=== PATIENT | female | born 1995 | race Caucasian/White ===

== ENCOUNTER 2018-02-20 15:24 | Inpatient (IN) | payer OTHER ==
[~2018-02-20] VITALS: Ht 157.5 cm; Wt 80.0 kg
[2018-02-26] MEDS ORDERED: ZOLOFT100 MG (06:26)
[2018-02-26] MEDS ORDERED: LAMICTAL XR200 MG (06:28)
[2018-02-26] MEDS ORDERED: VITAFOL-OB+DHA1 EACH PO (06:29)
--- NOTE | 2018-02-26 08:37 | NUR ---
02/26/18 0837 Kayla Mujica 0828 PATIENT ARRIVES TO [facility] VIA BED. PATIENT AWAKE, ALERT AND ORIENTED X3. RESP EVEN AND UNLABORED. DENIES PAIN OR NAUSEA. 0837 PATIENT BREAST FEEDING TO RIGHT SIDE.
--- NOTE | 2018-02-28 10:18 | PR ---
[facility] [address] [facility] [place] [address] Signed PP Progress Notes Datetime Report Generated by CPN: 02/28/2018 10:18 SUBJECTIVE: [id number] Pain: Within normal limits Nausea/Vomiting: Denies Vital Signs: [id number] Vital Signs: Reviewed; Within Normal Limits Notable Details: PP Hgb/HCt = 11.3/32.6 EXAM: [id number] Abdomen/Uterus: Normal Lochia: Normal Extremities: Normal Incision: Normal IMPRESSION/PLAN/PROCEDURES: [id number] Impression: Normal progression Plan: Discharge Procedures: None Progress Notes: Doing well, without complaoint, wants to go home Signing Physician: Carol Torrez MD Copies: ~ *Electronically Signed* 02/28/18 1018 CAROL TORREZ MD PATIENT NAME: CHRISTIANO FLORES PROGRESS NOTE DATE OF : 94 PHYSICIAN: CAROL TORREZ MD RPT #: [id number] REPORT IS CONFIDENTIAL AND NOT TO BE RELEASED WITHOUT AUTHORIZATION
--- NOTE | 2018-02-28 10:22 | OR ---
[place] [address] [place], [place] [address] Signed DATE OF OPERATION: 02/26/2018 SURGEON: Giuliano Bianchi MD Patient of Dr. Bianchi. PREOPERATIVE DIAGNOSES: Term , previous section. POSTOPERATIVE DIAGNOSES: Term , previous section. PROCEDURE: Repeat low transverse segment section. Delivery of live female . BICYCLE REPAIR TECHNICIAN: Chadd Mosley DO ANESTHESIA: Spinal. ESTIMATED BLOOD LOSS: 500 mL. COMPLICATIONS: None. DRAINS: Scruggs to bladder. FINDINGS: Live female , weight 5 pounds 12 ounces. 's nine and nine. Normal uterus, with slightly elevated bladder more on the right side than the left. Normal tubes and ovaries bilateral. DESCRIPTION OF PROCEDURE: The patient was brought to the operating room, placed in supine position. After adequate spinal anesthesia was obtained, she was placed in dorsal lithotomy position, prepped and draped in usual sterile fashion. Scruggs catheter was placed in the bladder. A Pfannenstiel skin incision was made through the previous surgical scar. Subcutaneous Electronically Signed By: GIULIANO BIANCHI MD 02/28/18 1022 PATIENT NAME: CHRISTIANO FLORES OPERATIVE REPORT DATE OF : [birth year] REPORT #: [id number] PHYSICIAN: GIULIANO BIANCHI MD PCP: UNASSIGNED DOCTOR REPORT IS CONFIDENTIAL AND NOT TO BE RELEASED WITHOUT AUTHORIZATION [place] [address] [place], [place] [address] Signed tissue was then dissected with the scalpel and Bovie. The fascia was nicked with the scalpel and extended in transverse fashion using curved scissors. The underlying abdominal musculature was bluntly and sharply from the fascia above and below the incision. There was some scar tissue adhering the abdominal muscle to the underside of the fascia. This was taken down and the abdominal musculature opened along the midline. The peritoneum was bluntly entered with finger dissection, extended in vertical fashion using Metzenbaum scissors. The Jayesh self-retaining retractor was inserted into the incision and tightened in place. The above findings were noted. The lower uterine segment was examined and a small uterine incision made with a scalpel in the midline just above the elevated bladder. Finger dissection was used to open the incision and very slight meconium stained fluid came from the incision. The infant was noted to be in vertex RANULFO presentation. The head was easily delivered from the incision. There was a loose nuchal cord, which was removed and then the rest of the easily delivered from the incision. The mouth and nose were suctioned with bulb syringe while the cord was doubly clamped and cut. The infant was passed off the table in good condition to the awaiting nurse. The placenta was then manually removed and uterine cavity explored a lap pad to remove any retained membranes. An angle stitch of 0 Monocryl was placed at one end of the incision in a running locking stitch of 0 Monocryl starting at the other end used to close the incision. A 2nd running stitch of 0 Monocryl was used to imbricate the 1st layer. Good hemostasis was noted except for one small area near the right angle. This was controlled with a qslzst-vz-bjjjr stitch of 0 Monocryl. Good hemostasis was then obtained. The entire pelvis was irrigated, suctioned, examined, any superficial bleeding spots were cauterized with the Bovie. The Jayesh retractor was then removed and sheet of ACell placed over the lower uterine segment to help with healing. The anterior wall peritoneum was then closed using running stitch of 2-0 Vicryl suture. The abdominal musculature was reapproximated using interrupted stitches of 0 Vicryl suture. The abdominal wall incision was irrigated, suctioned, examined, any superficial bleeding spots cauterized with the Bovie. Because the area was quite raw and some oozing noted, but no obvious areas of bleeding the abdominal musculature was sprinkled with Lara to help with hemostasis. When good hemostasis was noted, powdered ACell was also sprinkled on the abdominal musculature to help with healing and then the fascia closed using two running stitch of 0 Vicryl suture meeting in the midline. Subcutaneous tissue was irrigated, suctioned, examined, any bleeding spots were cauterized with the Bovie. The subcutaneous tissue sprinkled with the remaining powdered ACell and closed using interrupted stitches of 3-0 Vicryl suture. Skin was reapproximated using skin clips. The patient tolerated the procedure well, went to recovery room in good condition. The sponge, needle, instrument count correct at the end of procedure. Electronically Signed By: GIULIANO BIANCHI MD 02/28/18 1022 PATIENT NAME: CHRISTIANO FLORES OPERATIVE REPORT DATE OF : 94 REPORT #: [id number] PHYSICIAN: GIULIANO BIANCHI MD PCP: UNASSIGNED DOCTOR REPORT IS CONFIDENTIAL AND NOT TO BE RELEASED WITHOUT AUTHORIZATION [address] [address] Signed Giuliano Bianchi MD MJB/MODL /[id number] Copies: ~ Electronically Signed By: GIULIANO BIANCHI MD 02/28/18 1022 PATIENT NAME: CHRISTIANO FLORES OPERATIVE REPORT DATE OF : [birth year] REPORT #: [id number] PHYSICIAN: GIULIANO BIANCHI MD PCP: UNASSIGNED DOCTOR REPORT IS CONFIDENTIAL AND NOT TO BE RELEASED WITHOUT AUTHORIZATION
== END 2018-02-28 12:15 | disposition home or self-care (01) | DRG 765 ==
LOC: FBC 02-26 05:50
PROVIDERS: ADMIT General Practice
PROC: 10D00Z1 Extraction of Products of Conception, Low, Open Approach (ICD-10-PCS; principal; 2018-02-26 06:45)
DX: O34.211 Maternal care for low transverse scar from previous cesarean delivery (principal); O99.354 Diseases of the nervous system complicating childbirth; G40.509 Epileptic seizures related to external causes, not intractable, without status epilepticus; N85.8 Other specified noninflammatory disorders of uterus; O69.81X0 Labor and delivery complicated by cord around neck, without compression, not applicable or unspecified; F31.9 Bipolar disorder, unspecified; O99.344 Other mental disorders complicating childbirth; Z79.899 Other long term (current) drug therapy; Z91.040 Latex allergy status; Z3A.39 39 weeks gestation of pregnancy; Z37.0 Single live birth
CPT/HCPCS: 01961; 36415; 85027; C1763; J0690; J1170; J2274; J2405; J2590; J3010; J7120

== ENCOUNTER 2019-08-19 10:05 | Day surgery (SDC) | payer OTHER ==
[~2019-08-19] VITALS: Ht 157.5 cm; Wt 68.0 kg
[~2019-08-19 10:05] MED LIST: LAMICTAL XR200 MG; VITAFOL-OB+DHA1 EACH PO; ZOLOFT100 MG
[2019-08-19] MEDS ORDERED: TYLENOL325 MG PO (10:32)
--- NOTE | 2019-08-19 11:37 | NUR ---
AND NAMED ACCOUNT EXECUTIVE TO BEDSIDE TO CONSULT WITH PT. PRE OP MEDICATIONS GIVEN. PT DENIES PAIN AND NAUSEA. PT WATCHING TV. NO ADDITIONAL REQUESTS OR COMPLAINTS. BED RAILS UP. CALL LIGHT WITHIN REACH.
--- NOTE | 2019-08-19 12:20 | NUR ---
08/19/19 1220 Sheets,Lucia 1216 PT ARRIVED TO PACU ASLEEP AND RESP EVEN AND UNLABORED. VSS.
--- NOTE | 2019-08-19 12:40 | NUR ---
PT ARRIVED FROM PACU. PT REPORTS 3/10 CRAMPING PAIN THAT IS RELEIVED WITH SITTING UP. PT DENIES NAUSEA. PT TOLERTATING SIPS OF WATER. PUDDING PROVIDED PER PT PREFERENCE. SMALL AMOUNT OF DRAINAGE NOTED ON HUGH PAD. PT WORKING ON PHONE. NO ADDITIONAL REQUESTS OR COMPLAINTS AT THIS TIME. CALL LIGHT WITHIN REACH. BED RAILS UP.
--- NOTE | 2019-08-19 13:17 | NUR ---
THIS RN TO ROOM TO CHECK ON PT. PT VISITING WITH FAMILY. PT DENIES PAIN AND NAUSEA. PER AREA ASSESSED, NO NEW DRAINAGE NOTED. SOUP AND SANDWITCH ORDERED FOR PT. NO ADDITIONAL REQUESTS OR COMPLAINTS. CALL LIGHT WITHIN REACH. FAMILY AT BEDSIDE. CALL LIGHT WITHIN REACH.
[2019-08-19] MEDS ORDERED: IBUPROFEN800 MG PO (13:55)
--- NOTE | 2019-08-19 14:30 | NUR ---
ASSESSMENT AND VITALS DUE. PT WATCHING TV. PT DENIES NAUSEA AFTER EATING BLT AND SOUP. PT REPORTS 7/10 CRAMPING PAIN. HUGH PAD SHOWS SMALL AMOUNT OF RED DRAINAGE. SEE MAR FOR MEDICATION GIVEN. PT DENIES NEED TO VOID. FLUIDS ENCOURAGED. NO ADDITIONAL REQUESTS OR COMPLAINTS AT THIS TIME. CALL LIGHT WITHIN REACH. BED RAILS UP. FAMILY AT BEDSIDE.
--- NOTE | 2019-08-19 14:53 | NUR ---
PT CALL LIGHT ON. PT REQUESTS ASSISTANCE UP TO VOID. PT VOIDS 500ML OF PINK URIN WITHOUT ISSUE. PT STEADY ON FEET WITH SBA. PT BACK TO ROOM. PT DRESSES SELF. DISCHARGE INSTRUCTIONS REVIEWED WITH PT AND . PT AND FAMILY VERBALIZE UNDERSTANDING OF INSTRUCTIONS, MEDICATIONS, AND FOLLOW UP AND STATE THEIR QUESTIONS HAVE BEEN ANSWERED. PT WHEELED FROM DAY SURGERY, DRIVING PT HOME. NO ADDITIONAL QUESTIONS, COMPLAINTS, OR CONCERNS.
--- NOTE | 2019-08-20 08:07 | OR ---
[address] [address] Signed DATE OF OPERATION: 08/19/2019 SURGEON: Carol Torrez MD Patient of Dr. Torrez. PREOPERATIVE DIAGNOSIS: Missed . POSTOPERATIVE DIAGNOSIS: Missed . PROCEDURE: Suction dilatation and curettage. ANESTHESIA: Monitored anesthesia care (MAC). ESTIMATED BLOOD LOSS: 300 mL. SPECIMEN: Products of conception. DRAINS: None. PACKING: None. FINDINGS: Vagina, no blood. Cervix, thick and closed. Uterus, soft and symmetric, 10-week size. No adnexal masses. Moderate amount of normal-appearing products of conception. COMPLICATIONS: None. DESCRIPTION OF PROCEDURE: The patient was brought to the operating room, placed supine in position. After adequate MAC was obtained, the patient was placed in dorsal lithotomy position, prepped Electronically Signed By: CAROL TORREZ MD 08/20/19 0807 PATIENT NAME: CHRISTIANO GOMEZ OPERATIVE REPORT DATE OF : [birth year] REPORT #: [id number] PHYSICIAN: CAROL TORREZ MD PCP: UNASSIGNED DOCTOR REPORT IS CONFIDENTIAL AND NOT TO BE RELEASED WITHOUT AUTHORIZATION [address] [address] Signed and draped in usual sterile fashion. Her bladder was emptied with straight catheterization. A weighted speculum was placed in the vagina and the anterior lip of cervix grasped with an Allis clamp. The cervix was serially dilated to a #9-Swedish dilator. Then, #9 curved suction tip curette was carefully introduced in the uterine cavity. After setting the suction to the correct amount, uterine cavity was then scraped in 360 degree fashion removing moderate amount of normal-appearing tissue. This was continued until no additional tissue was removed and normal empty field of the uterus was noted throughout. The uterine curette was removed and the cervix noted to have good hemostasis. All instruments removed from the vagina. The uterus was repalpated and noted to be firmer and smaller now down to 6 to 8 week size and cervix again observed and noted to have good hemostasis. Procedure was terminated. The patient tolerated the procedure well, went to recovery room in good condition. The sponge and instrument count correct at the end of procedure. The uterine contents were sent to Pathology for identification. MD RICHIE GonzalesB/MODL /[id number] Copies: ~ Electronically Signed By: CAROL TORREZ MD 08/20/19 0807 PATIENT NAME: CHRISTIANO GOMEZ OPERATIVE REPORT DATE OF : [birth year] REPORT #: [id number] PHYSICIAN: CAROL TORREZ MD PCP: UNASSIGNED DOCTOR REPORT IS CONFIDENTIAL AND NOT TO BE RELEASED WITHOUT AUTHORIZATION
--- NOTE | 2019-08-20 14:06 | PATH ---
[facility] [address] [place], [place] [address] Signed SPECIMEN(S): A PRODUCTS OF CONCEPTION SPECIMEN SOURCE: A. PRODUCTS OF CONCEPTION CLINICAL HISTORY: Missed AB. FINAL PATHOLOGIC DIAGNOSIS: Products of conception, submitted: - Fragments of decidualized endometrium and fibrotic chorionic villi, consistent with products of conception. DDF:emb:C2NR MICROSCOPIC EXAMINATION: Histologic sections of all submitted blocks are examined by light microscopy. These findings, together with the gross examination, support the pathologic diagnosis. GROSS DESCRIPTION: The specimen, labeled "CR, A and products of conception on the requisition," is received in formalin and consists of a 7 x 6 x 5 cm aggregate of soft de la cruz to red focally spongy tissue with no embryonic or parts present. Welding Operator spongy tissue is submitted in cassette A1. SS (under the direct supervision of a pathologist) The Gross Description was prepared using a voice recognition system. The report was reviewed for accuracy; however, sound-alike word errors, addition and/or deletions may occur. If there is any question about this report, please contact Client Services. PERFORMING LABORATORY: The technical component was performed by [facility], [address] [place] [id number] (Tunnel Elastic Operator Zigzag: Josefa Abreu MD; CLIA# [id number]). Professional interpretation was performed by [facility], [facility], [address] [place] [id number] (Tunnel Elastic Operator Zigzag: Mika Alarcon M.D.; CLIA#: [id number]). Diagnostician: Steven Templeton DO Pathologist Electronically Signed 08/20/2019 PATIENT NAME: CHRISTIANO GOMEZ PATHOLOGY DATE OF : [birth year] REPORT #: [id number] PHYSICIAN: [facility] PCP: UNASSIGNED DOCTOR REPORT IS CONFIDENTIAL AND NOT TO BE RELEASED WITHOUT AUTHORIZATION [address] [address] Signed Copies: ~ PATIENT NAME: CHRISTIANO GOMEZ PATHOLOGY DATE OF : [birth year] REPORT #: [id number] PHYSICIAN: [facility] PCP: UNASSIGNED DOCTOR REPORT IS CONFIDENTIAL AND NOT TO BE RELEASED WITHOUT AUTHORIZATION
== END 2019-08-19 15:00 | disposition home or self-care (01) ==
LOC: OPS 10:05 → DS 10:10 → OPS 11:30 → DS 11:30 → OPS 15:00
PROVIDERS: General Practice
PROC: 10D17ZZ Extraction of Products of Conception, Retained, Via Natural or Artificial Opening (ICD-10-PCS; principal; 2019-08-19 11:30)
DX: O02.1 Missed abortion (principal); G40.909 Epilepsy, unspecified, not intractable, without status epilepticus; F31.9 Bipolar disorder, unspecified; F43.10 Post-traumatic stress disorder, unspecified; F17.210 Nicotine dependence, cigarettes, uncomplicated; K21.9 Gastro-esophageal reflux disease without esophagitis; Z79.899 Other long term (current) drug therapy
CPT/HCPCS: J1100; J1885; J2250; J2405; J2590; J3010; J7121

== ENCOUNTER 2021-08-09 13:45 | Inpatient (IN) | payer OTHER ==
[~2021-08-09] VITALS: Ht 154.9 cm; Wt 85.7 kg
[~2021-08-09 13:45] MED LIST changes: +IBUPROFEN800 MG PO; +TYLENOL325 MG PO
[2021-08-14] MEDS ORDERED: LAMICTAL200 MG PO (06:36)
--- NOTE | 2021-08-14 08:54 | NUR ---
08/14/21 0854 CLAU ESPINOZA 0822-PATIENT BACK TO ROOM 104 FOR PACU. PATIENT IS AWAKE. DENIES PAIN AND NAUSEA. IV IN LEFT HAND WNL. IV INFUSION WITH 20 PITOCIN. BARNES CATH TO GRAVITY.
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
--- NOTE | 2021-08-15 14:54 | OR ---
[facility] [address] [place], [place] [address] Signed DATE OF OPERATION: 08/14/2021 SURGEON: Giuliano Bianchi MD The patient of Dr. Bianchi. PREOPERATIVE DIAGNOSIS: Term , previous section. POSTOPERATIVE DIAGNOSIS: Term , previous section. PROCEDURE: Repeat low transverse segment section, delivery of live male . ELECTRICAL MAINTENANCE SUPERVISOR: Dr. Mosley. ANESTHESIA: Spinal. ESTIMATED BLOOD LOSS: 500 mL. COMPLICATIONS: None. DRAINS: Scruggs to bladder. FINDINGS: Live male infant, Apgars 9 and 9, weight 5 pounds 13 ounces. Normal uterus, normal tubes and ovaries bilateral with omental adhesion to the left anterior abdominal wall midway between the symphysis and the umbilicus. There is another omental adhesion further up near the umbilicus. The rest of the pelvis was free of any adhesions. DESCRIPTION OF PROCEDURE: The patient was brought into the operating room, placed in supine position. After adequate spinal anesthesia was obtained, the patient was prepped and draped in usual sterile fashion. Scruggs catheter was placed in the bladder. Pfannenstiel skin incision Electronically Signed By: GIULIANO BIANCHI MD 08/15/21 1454 PATIENT NAME: CHRISTIANO GOMEZ OPERATIVE REPORT DATE OF : [birth year] REPORT #: [id number] PHYSICIAN: GIULIANO BIANCHI MD PCP: BLAKE NEFF MD REPORT IS CONFIDENTIAL AND NOT TO BE RELEASED WITHOUT AUTHORIZATION [facility] [address] [place], [place] [address] Signed was made through previous surgical scar using a scalpel. Subcutaneous tissue was dissected with the scalpel and the Bovie. The fascia was nicked with scalpel and extended in transverse fashion using curved scissors. The underlying abdominal musculature was bluntly and sharply from the fascia above and below the incision. The abdominal musculature was bluntly and sharply along the midline. The peritoneum was grasped, was opened with finger dissection, extended in vertical fashion using Metzenbaum scissors and finger dissection. The Jayesh self-retaining retractor was inserted into the incision and tightened in place. The vesicouterine peritoneum was grasped, nicked with Metzenbaum scissors and extended in transverse fashion. This was gently pushed down to help move the bladder further down away from the cervix. The lower uterine segment was then carefully nicked with scalpel and extended and opened with finger dissection and the incision extended transverse fashion using finger dissection, clear fluid came from the incision and the infant was noted to be in vertex, DOMINIC presentation. The head was easily delivered from the incision. The cord was noted to be around the neck once loosely, this was removed. The rest of the easily delivered from the incision. The cord was doubly clamped and cut. The infant passed off table in good condition to the awaiting nurse. The placenta was then manually removed and uterine cavity explored with lap pad to remove any retained membranes. An angle stitch of 0 Monocryl was placed at one end of the incision and a running locking stitch of 0-Monocryl starting at the other end used to close the incision. A 2nd running stitch of 0 Monocryl was used to imbricate the 1st layer. Good hemostasis was noted. The entire pelvis was irrigated, suctioned, and examined, and any superficial bleeding spots cauterized with Bovie. When good hemostasis was obtained, the Jayesh retractor was removed. A sheet of ACell placed over the lower uterine segment and then the anterior peritoneum closed with a running stitch of 2-0 Vicryl suture. The abdominal musculature was reapproximated using interrupted stitches of 0 Vicryl suture. There is one area of bleeding in the abdominal musculature on the right side up near the umbilicus, this was controlled with thjsqh-ls-vtzhm stitch of 0 Vicryl suture. When good hemostasis was obtained, the anterior abdominal wall was irrigated, suctioned, and examined, and any superficial bleeding spots cauterized with Bovie. The fascia was then closed using two running stitches of 0 Vicryl suture meeting in the midline. Subcutaneous tissue was irrigated, suctioned, and examined, and any bleeding spots cauterized with the Bovie. Subcutaneous tissue was then closed using interrupted stitches of 3-0 Vicryl suture. Skin was reapproximated using skin clips. The patient tolerated the procedure well, went to recovery room in good condition. The sponge, needle, and instrument count were correct at the end of the procedure. Giuliano Bianchi MD Electronically Signed By: GIULIANO BIANCHI MD 08/15/21 1454 PATIENT NAME: CHRISTIANO GOMEZ OPERATIVE REPORT DATE OF : [birth year] REPORT #: [id number] PHYSICIAN: GIULIANO BIANCHI MD PCP: BLAKE NEFF MD REPORT IS CONFIDENTIAL AND NOT TO BE RELEASED WITHOUT AUTHORIZATION [address] [address] Signed MJB/MODL /[id number] Copies: ~ Electronically Signed By: GIULIANO BIANCHI MD 08/15/21 1454 PATIENT NAME: CHRISTIANO GOMEZ OPERATIVE REPORT DATE OF : [birth year] REPORT #: [id number] PHYSICIAN: GIULIANO BIANCHI MD PCP: BLAKE NEFF MD REPORT IS CONFIDENTIAL AND NOT TO BE RELEASED WITHOUT AUTHORIZATION
== END 2021-08-15 15:41 | disposition home or self-care (01) | DRG 787 ==
LOC: FBC 08-14 05:18
PROVIDERS: ADMIT General Practice; ATTEND General Practice
PROC: 10D00Z1 Extraction of Products of Conception, Low, Open Approach (ICD-10-PCS; principal; 2021-08-14 06:45)
DX: O34.211 Maternal care for low transverse scar from previous cesarean delivery (principal); O99.354 Diseases of the nervous system complicating childbirth; O99.324 Drug use complicating childbirth; O99.334 Smoking (tobacco) complicating childbirth; F17.210 Nicotine dependence, cigarettes, uncomplicated; Z20.822 Contact with and (suspected) exposure to COVID-19; O99.344 Other mental disorders complicating childbirth; F31.9 Bipolar disorder, unspecified; F43.10 Post-traumatic stress disorder, unspecified; F12.90 Cannabis use, unspecified, uncomplicated; G40.909 Epilepsy, unspecified, not intractable, without status epilepticus; Z3A.39 39 weeks gestation of pregnancy; Z37.0 Single live birth; Z88.1 Allergy status to other antibiotic agents; Z91.040 Latex allergy status
CPT/HCPCS: 01961; 85027; A9270; J0690; J1100; J1644; J2001; J2274; J2405; J2550; J2590; J3010; J7121

== ENCOUNTER 2022-01-19 07:28 | Emergency (ER) | payer OTHER ==
[~2022-01-19] VITALS: Ht 152.4 cm; Wt 76.2 kg
[~2022-01-19 07:28] MED LIST changes: +LAMICTAL200 MG PO
[2022-01-19] MEDS ORDERED: HYDROCODON-ACE1 EA10 PO (09:06)
[2022-01-19] MEDS ORDERED: CEPHALEXIN500 M1 PO (09:06)
== END 2022-01-19 10:07 | disposition home or self-care (01) ==
LOC: ED 07:28
DX: N61.0 Mastitis without abscess (principal); F17.200 Nicotine dependence, unspecified, uncomplicated; Z88.0 Allergy status to penicillin; Z91.040 Latex allergy status; Z79.899 Other long term (current) drug therapy
CPT/HCPCS: 36415; 76642; 80048; 85025; 96374; 96375; 99283-25; A9270; J0690; J1170; J1885; J2405

== ENCOUNTER 2023-01-27 07:55 | Emergency (ER) | payer OTHER ==
[~2023-01-27] VITALS: Ht 152.4 cm; Wt 86.2 kg
[~2023-01-27 07:55] MED LIST changes: +CEPHALEXIN500 M1 PO; +HYDROCODON-ACE1 EA10 PO
[2023-01-27] MEDS ORDERED: CEPHALEXIN500 MG PO (08:35)
[2023-01-27] MEDS ORDERED: HYDROCODON-ACE1 EA10 PO ×2 (08:36→09:58)
[2023-01-27 10:00] VITALS: BP 117/82
== END 2023-01-27 10:00 | disposition home or self-care (01) ==
LOC: ED 07:55
DX: N75.0 Cyst of Bartholin's gland (principal); F17.200 Nicotine dependence, unspecified, uncomplicated; Z88.0 Allergy status to penicillin; Z91.040 Latex allergy status; Z79.899 Other long term (current) drug therapy
CPT/HCPCS: 56420; 99282-25